=== PATIENT | female | born 1945 | race Caucasian/White ===

== ENCOUNTER 2020-07-06 19:56 | Emergency (ER) | payer MEDICARE, OTHER ==
[~2020-07-06] VITALS: Ht 167.6 cm; Wt 86.2 kg
--- NOTE | 2020-07-06 20:15 | NUR ---
[id number] FROM HOME TRIP AND FALL, DENIES LOC, C/O LT THIGH PAIN. PT AAOX4, VSS. RR EVEN & UNLABORED. DENIES CP, SOB, DIZZINESS, N/V AT THIS TIME. PT SEEN & EVAL'D BY CANDELARIO VANESSA. WILL CONT TO MONITOR.
[2020-07-06] MEDS ORDERED: MORPHINE SULFATE INJ 2 MG/ML DISP.SYRIN IM ONE (20:30)
[2020-07-06] MEDS ORDERED: ONDANSETRON 4 MG TAB.RAPDIS SL ONE (20:30)
--- NOTE | 2020-07-06 20:43 | NUR ---
PT TO RADIOLOGY DEPT VIA [facility].
[2020-07-06] MEDS ORDERED: MORPHINE SULFATE INJ 2 MG/ML DISP.SYRIN ONE (20:50)
[2020-07-06] MEDS ORDERED: ONDANSETRON 4 MG TAB.RAPDIS ONE (20:51)
--- NOTE | 2020-07-06 21:15 | NUR ---
PT BACK FROM RADIOLOGY DEPT. MEDICATED ORDERED, PT YANIRA WELL.
--- NOTE | 2020-07-06 21:33 | NUR ---
[facility] M[facility] TO [facility]. WILL CALL BACK FOR MD TO
--- NOTE | 2020-07-06 21:43 | NUR ---
CANDELARIO DE LEON SPEAKING WITH GILBERTO GOMEZ, DR. WARREN
[2020-07-06 21:59] LABS: BASOPHILS # (AUTO) 0.1 /CMM (0.0-0.2); BASOPHILS % (AUTO) 0.4 % (0.0-2.0); EOSINOPHILS % (AUTO) 0.5 % (0.0-6.0); HEMATOCRIT 44 % (33-45); HEMOGLOBIN 14.6 g/dL (11.5-14.8); LYMPHOCYTES # (AUTO) 0.8 /CMM (0.8-4.8); LYMPHOCYTES % (AUTO) 6.2 % (20.0-44.0); MEAN CORPUSCULAR HGB CONC 33 g/dl (31.0-36.0); MEAN CORPUSCULAR VOLUME 91 fL (82-100); MONOCYTES # (AUTO) 0.7 /CMM (0.1-1.30); MONOCYTES % (AUTO) 5.1 % (2.0-12.0); NEUTROPHILS # (AUTO) 11.1 /CMM (1.8-8.9); NEUTROPHILS % (AUTO) 87.8 % (43.0-81.0); PLATELET COUNT (AUTO) 201 /CMM (150-450); RED BLOOD CELL COUNT(AUTO) 4.87 MIL/uL (4.0-5.2); WHITE BLOOD COUNT (AUTO) 12.7 K/uL (4.3-11.0)
[2020-07-06 22:13] LABS: CALCIUM, SERUM 9.2 mg/dL (8.5-10.1); CARBON DIOXIDE 28 mmol/L (21-32); CHLORIDE 104 mmol/L (98-107); CREATININE 0.9 mg/dL (0.6-1.3); GLUCOSE 203 mg/dL (74-106); POTASSIUM 3.5 mmol/L (3.5-5.1); SODIUM SERUM 142 mmol/L (136-145); UREA NITROGEN, BLOOD 19 mg/dL (7-18)
--- NOTE | 2020-07-06 22:22 | NUR ---
CANDELARIO DE LEON SPEAKING WITH GILBERTO GOMEZ, DR. WARREN
[2020-07-06] MEDS ORDERED: HYDROMORPHONE 1 MG/1 ML DISP.SYRIN IV ONE (22:30)
--- NOTE | 2020-07-06 22:31 | NUR ---
COVID SWAB COLLECTED AND SENT TO LAB
[2020-07-06] MEDS ORDERED: HYDROMORPHONE 1 MG/1 ML DISP.SYRIN ONE (22:44)
--- NOTE | 2020-07-07 00:09 | NUR ---
per lab, covid neg
--- NOTE | 2020-07-07 01:24 | NUR ---
ACCPETED [facility] [id number] [phone] DR[address] ZEESHAN ZAMUDIO BLS ETA [phone] PRN
--- NOTE | 2020-07-07 02:30 | NUR ---
REPORT GIVEN TO [facility] [phone] FOR TRANSPORTATION HI
[2020-07-07 02:32] VITALS: BP 133/72
== END 2020-07-07 02:52 | disposition short-term general hospital (02) ==
LOC: ER 19:58
DX: S72.012A Unspecified intracapsular fracture of left femur, initial encounter for closed fracture (principal); W01.0XXA Fall on same level from slipping, tripping and stumbling without subsequent striking against object, initial encounter; Y92.89 Other specified places as the place of occurrence of the external cause; E03.9 Hypothyroidism, unspecified; Z88.0 Allergy status to penicillin; E11.65 Type 2 diabetes mellitus with hyperglycemia; M17.11 Unilateral primary osteoarthritis, right knee; Z96.641 Presence of right artificial hip joint; M81.0 Age-related osteoporosis without current pathological fracture; Z20.822 Contact with and (suspected) exposure to COVID-19; R94.31 Abnormal electrocardiogram [ECG] [EKG]
CPT/HCPCS: 36415; 72192; 73503; 73552; 73564; 80048; 85025; 85730; 87081; 87426; 93005; 96372; 96374; 99285; C9803; J1170; J2270; Q0162; 73502

== ENCOUNTER 2022-11-19 15:13 | Emergency (ER) | payer OTHER ==
[~2022-11-19] VITALS: Ht 170.2 cm; Wt 81.6 kg
[2022-11-19 15:32] VITALS: BP 98/72; TEMP 98
[2022-11-19] MEDS ORDERED: HYDR-4209 PO (16:05)
[2022-11-19 16:58] VITALS: O2SAT 98
== END 2022-11-19 16:59 | disposition home or self-care (01) ==
LOC: ER 15:15
DX: M25.562 Pain in left knee (principal); E11.9 Type 2 diabetes mellitus without complications; E03.9 Hypothyroidism, unspecified; Z79.899 Other long term (current) drug therapy; Z88.1 Allergy status to other antibiotic agents; W18.39XA Other fall on same level, initial encounter; Y93.89 Activity, other specified; Y92.89 Other specified places as the place of occurrence of the external cause; Y99.8 Other external cause status
CPT/HCPCS: 73564-TC